=== PATIENT | female | born 1990 | race Caucasian/White ===

== ENCOUNTER → 2019-05-12 | Outpatient (CLI) | payer OTHER ==
--- NOTE | 2019-05-12 15:36 | RAD ---
EXAM: Abdomen, single view. HISTORY: Ureterolithiasis. COMPARISON: None. FINDINGS: Frontal views of the abdomen and pelvis are obtained. There calcifications overlying the pelvis, the appearance of which favors phleboliths. Evaluation for renal stones is limited due to overlying bowel. No convincing renal stone is seen. There is a nonobstructive bowel gas pattern. There are cholecystectomy clips. There is a small osseous excrescence along the left anterior superior pubic bone. 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 IMPRESSION: 1. Calcifications overlying the pelvis, the appearance of which favors phleboliths. The reported ureterolithiasis is not clearly seen radiographically. There is no prior study available at the time of dictation for correlation. 2. Nonobstructive bowel gas pattern. Electronically signed by: Claudette Melo MD (05/12/2019 3:33 PM) [facility]
== END | disposition home or self-care (01) ==
LOC: DXRAD 13:31
PROVIDERS: ATTEND Urology
DX: N28.89 Other specified disorders of kidney and ureter (principal); Z90.49 Acquired absence of other specified parts of digestive tract
CPT/HCPCS: 74018

== ENCOUNTER 2019-08-15 14:35 | Emergency (ER) | payer OTHER ==
[~2019-08-15] VITALS: Ht 165.1 cm; Wt 79.5 kg
[2019-08-15 14:35] VITALS: BP 108/76
[2019-08-15] MEDS ORDERED: IBUPROFEN 600 MG TABLET. PO ONE (15:00)
--- NOTE | 2019-08-15 15:07 | PHYS DOC ---
Past History Past Medical History: No Pertinent History Past Surgical History: No Surgical History Smoking: Cigarettes Alcohol Use: None Drug Use: None Adult General Chief Complaint Chief Complaint: LOWEREXTREMITY INJURY HPI HPI 29-year-old female presents with report of right ankle and lateral foot pain and swelling which occurred prior to arrival after patient jumped up to kill a spider. Patient reports she came down abnormally and twisted her foot and ankle. Reports subsequent swelling to lateral aspects. Reports some tingling/numbness in her foot. Denies loss of consciousness, fever, chest pain, abdominal pain, or nausea and vomiting. Denies . Patient reports she has not taken any medication prior to arrival. Review of Systems Review of Systems Constitutional: Denies fever or chills Eyes: Denies redness or eye pain HENT: Denies nasal congestion or sore throat Respiratory: Denies cough or shortness of breath Cardiovascular: Denies chest pain or palpitations GI: Denies abdominal pain, nausea, or vomiting : Denies dysuria or hematuria Musculoskeletal: Reports right ankle and foot pain and swelling Integument: Denies rash or skin lesions Neurologic: Denies headache, focal weakness or sensory changes Complete systems were reviewed and found to be within normal limits, except as documented in this note. Current Medications Current Medications Current Medications Medications (Trade) Dose Ordered Sig/Bob Start Time Stop Time Status Last Admin Dose Admin Ibuprofen (Motrin) 600 mg 1X ONCE 08/15/19 15:00 08/15/19 15:01 UNV Physical Exam Physical Exam Constitutional: Well developed, well nourished, no acute distress, non-toxic appearance HENT: Normocephalic, atraumatic, oropharynx moist Eyes: Conjunctiva normal, no discharge Neck: Normal range of motion, no tenderness, supple Cardiovascular: CR < 2 sec, Right PT +2 Lungs & Thorax: No respiratory distress, equal chest rise and fall Skin: Warm, dry, no erythema, no rash Extremities: Tenderness to right fifth metatarsal with surrounding edema/ecchymosis, left lateral malleolus tenderness on palpation, no deformity, ankle drawer test negative, ROM intact, no edema Neurologic: Alert and oriented X 3, no focal deficits noted Psychologic: Affect normal, judgment normal EKG EKG [] Radiology/Procedures Radiology/Procedures PROCEDURE: FOOT RIGHT 3V & ANKLE RIGHT 3V Three-view right ankle and three-view right foot dated 08/15/2019. No comparison available. CLINICAL INDICATION: Pain. FINDINGS: 3 views right ankle show normal bony alignment. No displaced fracture. No acute osseous or articular abnormality. Talar dome is intact. 3 views the right foot show normal bony alignment. No displaced fracture. No acute osseous or articular abnormality. No periostitis or bone destruction. IMPRESSION: No acute findings. Electronically signed by: Patrice Garcia MD (08/15/2019 3:15 PM) [id number] Course & Med Decision Making Course & Med Decision Making Pertinent Imaging studies reviewed. (See chart for details) Patient presents with pain, bruising, and swelling to right fifth metatarsal and lateral malleolus. Pain addressed. Ice applied. X-rays obtained without acute fracture or dislocation. Rosendo wrap and postop shoe applied. Crutches provided with training. Patient stable for discharge with outpatient follow-up with PCP/orthopedics. Orthopedic referral provided. Discussed findings and plan with patient, who acknowledges understanding and agreement. Dragon Disclaimer Dragon Disclaimer This electronic medical record was generated, in whole or in part, using a voice recognition dictation system. Splinting Splinting : Location: Right foot and ankle Pre-Made Type: ROSENDO bandage and Post op shoe Pre-Proc Neuro Vasc Exam: normal Post-Proc Neuro Vasc Exam: normal, unchanged from pre-exam Departure Departure: Impression: Primary Impression: Contusion of foot, right Additional Impression: Sprain of ankle, right Disposition: 01 HOME, SELF-CARE Condition: STABLE Referrals: PCP,NO (PCP) LORE PERALTA MD Patient Instructions: Ankle Sprain, [id number], Crutch Use, [id number], Foot Contusion, [id number] Additional Instructions: Use over the counter Tylenol and Ibuprofen for pain or discomfort. ICE area 20 min on then leave off for next 20 min. Repeat over next few days as needed. Problem Qualifiers Primary Impression: Contusion of foot, right Encounter type: initial encounter Qualified Codes: S90.31XA - Contusion of right foot, initial encounter Additional Impression: Sprain of ankle, right Encounter type: initial encounter Involved ligament of ankle: unspecified ligament Qualified Codes: S93.401A - Sprain of unspecified ligament of right ankle, initial encounter PATRICE SCHAFFER DO Aug 15, 2019 15:07
--- NOTE | 2019-08-15 15:18 | RAD ---
Three-view right ankle and three-view right foot dated 08/15/2019. No comparison available. CLINICAL INDICATION: Pain. FINDINGS: 3 views right ankle show normal bony alignment. No displaced fracture. No acute osseous or articular abnormality. Talar dome is intact. 3 views the right foot show normal bony alignment. No displaced fracture. No acute osseous or articular abnormality. No periostitis or bone destruction. IMPRESSION: No acute findings. Electronically signed by: Patrice Garcia MD (08/15/2019 3:15 PM) [id number]
== END 2019-08-15 15:15 | disposition home or self-care (01) ==
LOC: ER 14:35
DX: S93.401A Sprain of unspecified ligament of right ankle, initial encounter (principal); F17.210 Nicotine dependence, cigarettes, uncomplicated; W18.39XA Other fall on same level, initial encounter; Y93.39 Activity, other involving climbing, rappelling and jumping off; Y92.89 Other specified places as the place of occurrence of the external cause; Y99.8 Other external cause status
CPT/HCPCS: 29505; 73610; 73630; 99284

== ENCOUNTER 2020-10-09 19:13 | Emergency (ER) | payer OTHER ==
[~2020-10-09] VITALS: Ht 165.1 cm; Wt 87.4 kg
--- NOTE | 2020-10-09 19:38 | PHYS DOC ---
Past History Past Medical History: Kidney Stones Past Surgical History: Cholecystectomy, Other Additional Past Surgical Histo: kidney stone removal, ureteral stent Smoking: Cigarettes Alcohol Use: None Drug Use: None Adult General Chief Complaint Chief Complaint: FLANK PAIN HPI HPI Patient is a 30-year-old female with a past medical history significant for renal stones/ureteral stones who presents with left flank pain for 2 days. States that started yesterday, was 9 out of 10, sharp in nature with no nausea, vomiting or diarrhea. States it feels similar to stone she had in the past. Denies any fever, chest pain, shortness of breath, dysuria, hematuria or blood i n the stool. States his soon as she arrived to the emergency department to give a urine sample she passed a stone in the urine. States that after passing this her pain went from 9 out of 10 to 3 out of 10. Review of Systems Review of Systems Review of systems otherwise unremarkable except noted in HPI Allergies Allergies Allergies Coded Allergies Type Severity Reaction Last Updated Verified No Known Drug Allergies 10/09/20 No Physical Exam Physical Exam Constitutional: Well developed, well nourished, no acute distress, non-toxic appearance. [] HENT: Normocephalic, atraumatic, bilateral external ears normal, oropharynx moist, no oral exudates, nose normal. [] Eyes: conjunctiva normal, no discharge. [] Cardiovascular: Sinus tachycardia Lungs & Thorax: No respiratory distress Abdomen: soft, no tenderness, no masses, no pulsatile masses. [] Skin: Warm, dry, no erythema, no rash. [] Back: Left CVA tenderness. [] Extremities: No tenderness, ROM intact, no edema. [] Neurologic: Alert and oriented X 3,no focal deficits noted. [] Psychologic: Affect normal, judgement normal, mood normal. [] Current Patient Data Vital Signs Vital Signs Date Time Temp Pulse Resp B/P (MAP) Pulse Ox O2 Delivery O2 Flow Rate FiO2 10/09/20 19:21 98.4 108 132/102 (112) 98 EKG EKG [] Radiology/Procedures Radiology/Procedures [] Heart Score C/O Chest Pain: No Risk Factors: Risk Factors: DM, Current or recent (<one month) smoker, HTN, HLP, family history of CAD, obesity. Risk Scores: Risk Factors: DM, Current or recent (<one month) smoker, HTN, HLP, family history of CAD, obesity. Course & Med Decision Making Course & Med Decision Making Patient is a 30-year-old female who presents to the emergency department with left flank pain Vital signs notable for tachycardia. Physical exam noted above. Patient passed stone in the emergency department when given urine sample. Patient stated pain pretty much resolved and she is got no other symptoms and wanted to be di scharged home with no other work-up. Discussed the risks of this including but not limited to kidney damage, another stone or stones, worsening genitourinary tract infection in a worse case scenario sepsis and admission to the hospital. Patient states she has had this before, and understands and feels much better and thinks that she just needed to pass that stone. States that she knows the signs and symptoms of another stone and would return to the emergency department immediately. Advised to call primary care physician in the morning to update on ED visit and set up a follow- up visit as soon as she can for reevaluation and urinalysis repeat. Gave return precautions strictly to the patient. Patient verbalized understanding agreed with plan of discharge. [] Dragon Disclaimer Dragon Disclaimer This electronic medical record was generated, in whole or in part, using a voice recognition dictation system. Departure Departure: Disposition: HOME / SELF CARE / HOMELESS Condition: GOOD Referrals: BERTHA LOCKWOOD MD (PCP) Patient Instructions: Diet for Kidney Stones, Kidney Stones Scripts Cephalexin (CEPHALEXIN) 500 Mg Capsule 1 CAP PO TID for UTI for 7 Days, #20 CAP Prov: NISHA LAUGHLIN MD 10/09/20 NISHA LAUGHLIN MD October 09, 2020 19:37
[2020-10-09 19:52] VITALS: BP 151/79
[2020-10-09] MEDS: CEPHALEXIN 250 MG CAPSULE PO ONE (20:11)
[2020-10-09] MEDS ORDERED: CEPH500C PO (20:18)
[2020-10-09 20:39] LABS: BILIRUBIN,URINE NEG (NEG); CLARITY,URINE CLOUDY; COLOR,URINE YELLOW; GLUCOSE,URINE NEG (NEG); NITRITE,URINE NEG (NEG)
[2020-10-09 20:40] LABS: BACTERIA,URINE FEW /HPF (0-FEW); RBC,URINE >40 /HPF (0-2); SQUAMOUS EPITHELIAL CELL,UR MOD /LPF
== END 2020-10-09 20:22 | disposition home or self-care (01) ==
LOC: ER 19:13
DX: R10.9 Unspecified abdominal pain (principal); F17.210 Nicotine dependence, cigarettes, uncomplicated; Z87.442 Personal history of urinary calculi; Z90.49 Acquired absence of other specified parts of digestive tract
CPT/HCPCS: 81001; 81025; 87086; 99283

== ENCOUNTER 2021-04-30 13:23 | Emergency (ER) | payer OTHER ==
[~2021-04-30 13:23] MED LIST: CEPH500C PO
== END 2021-04-30 13:26 | disposition left against medical advice (07) ==
LOC: ER 13:23
DX: R10.9 Unspecified abdominal pain (principal); M54.9 Dorsalgia, unspecified; Z53.21 Procedure and treatment not carried out due to patient leaving prior to being seen by health care provider